=== PATIENT | female | born 1950 | race Caucasian/White ===

== ENCOUNTER 2016-10-21 21:11 | Emergency (ER) | payer MEDICARE, OTHER ==
[~2016-10-21] VITALS: Ht 167.6 cm; Wt 64.0 kg
[~2016-10-21 21:11] MED LIST: ACET325S8 PO; ACIDTAB4 PO; ADVA250A INH; ALPR0.5T3 PO; ALPR0.5T99 PO; CHOL4 PO; COMBAER INH; CYAN1000P SC; DIPH50TA PO; DOCU100T9 PO; FLAG500T PO; FLUO60TA PO; FURO1TAB93 PO; GLUCINJ IM; GUAI200UDC PO; MORP30SU PO; NOVOLOGP2 SQ; NYSTPOW PO; OMPR20CCR PO; OXYC1CAP PO; OXYC5 PO; POTA10IN2 PO; PRED5TAB PO; PROM1SUP12 PR; PROM25TA5 PO; SIMV20TA PO; TEMA30CA PO; VITA100018 PO; WARF1TAB PO; [UNRECOGNIZED DRUG - CODE] PO; [UNRECOGNIZED DRUG - OTHER] PO; accucheck
[2016-10-21 21:13] VITALS: BP 159/70; PULSE 104; RESP 16; TEMP 97.6; O2SAT 92
== END 2016-10-22 00:45 | disposition left against medical advice (07) ==
LOC: NED 21:11
DX: Z53.21 Procedure and treatment not carried out due to patient leaving prior to being seen by health care provider (principal)
CPT/HCPCS: 99281